=== PATIENT | male | born 1965 | race Caucasian/White ===

== ENCOUNTER 2022-03-15 20:37 | Emergency (ER) | payer BC ==
[2022-03-15] MEDS ORDERED: diphenhydrAMINE 50 MG Cap PO ONE (22:32)
== END 2022-03-15 23:00 | disposition home or self-care (01) ==
LOC: JD.ED 20:37
DX: T15.91XA Foreign body on external eye, part unspecified, right eye, initial encounter (principal)
CPT/HCPCS: 99283; Q0163; 99282